=== PATIENT | male | born 1995 | race Caucasian/White ===

== ENCOUNTER 2017-02-02 19:24 | Inpatient (IN) | payer OTHER ==
[~2017-02-02] VITALS: Ht 185.4 cm; Wt 77.1 kg
--- NOTE | 2017-02-03 00:40 | NUR ---
Pre-admission assessment Patient is a 21-year old, male, seen at intake, AAOx4, no SOB and with slight anxiety noted at this time. Discussed with patient admission policies of the unit. Patient is coherent and able to respond to questions appropriately. Patient reported that he came from [place], [place]. Pt is ambulatory with steady gait. Pt reports using these substances daily for the last 6 months since he was discharged from [facility] in 07/2016: 1) Xanax 5 mg PO daily 2) Heroin 2 gms IV daily 3) Methamphetamine Salts 2 gms IV daily 4) Crack Cocaine 1 gm smoke daily 5) ETOH-Captain Nader 750-1500 ml daily 6) Cannabis 1/2 ounce smoke daily Vital signs taken and as follows: PC=351/84, P=116, O2 sat on RA=97%, RR=20, T=98.3. Patient reports PMHx as follows: ADHD, Hypertension, Insomnia, Anxiety and Depression. Pt verbalized instructions and teachings regarding disposal of narcotic and other controlled home meds, unit protocols such as taking of vital signs Q4H and handling and disposal of contraband. Addendum: 02/03/17 at 0139 by MIHIR MALLORY RN Additional information: Patient also reports history of withdrawal-induced seizures, the last was in 06/2016. Pt is allergic to PCN.
[2017-02-03] MEDS ORDERED: LORAZEPAM 1 MG TABLET PO PRN (01:00)
[2017-02-03] MEDS ORDERED: LOPERAMIDE HCL 2 MG CAPSULE PO PRN ×2 (01:00)
[2017-02-03] MEDS ORDERED: MIRALAX 17 GM POWD.PACK PO PRN (01:00)
[2017-02-03] MEDS ORDERED: LORAZEPAM 2 MG/1 ML VIAL IM PRN (01:00)
[2017-02-03] MEDS ORDERED: diphenhydrAMINE 50 MG CAPSULE PO PRN (01:00)
[2017-02-03] MEDS ORDERED: MAGNESIUM HYDROXIDE 30 ML LIQUID UDC PO PRN (01:00)
[2017-02-03] MEDS ORDERED: MAG HYDROX/AL HYDROX/SIMETH 30 ML LIQUID UDC PO PRN (01:00)
[2017-02-03] MEDS ORDERED: THIAMINE HCL 200 MG/2 ML VIAL IM ONE (01:00)
[2017-02-03] MEDS ORDERED: ONDANSETRON 4 MG/2 ML VIAL IM PRN (01:00)
[2017-02-03] MEDS ORDERED: ACETAMINOPHEN 325 MG TABLET PO PRN (01:00)
[2017-02-03] MEDS ORDERED: DICYCLOMINE HCL 20 MG TABLET PO PRN (01:00)
--- NOTE | 2017-02-03 01:25 | NUR ---
ADMISSION NOTE PATIENT IS A 21 YEAR OLD MALE WHO PRESENTS TO [facility] FOR SUPERVISED WITHDRAWAL FROM ETOH/BENZO/OPIATE/METH /MARIJUANA DEPENDENCE. HEIGHT IS 61 AND WEIGHT IS 170 LBS. SKIN CHECK DONE, NO SKIN BREAKDOWN. SKIN INTACT. LUNGS CLEAR AND ABDOMEN NON-DISTENDED. BOWEL SOUNDS ACTIVE ON ALL 4 QUADRANT. LAST BOWEL MOVEMENT WAS 5 DAYS AGO. DENIES ANY ABDOMINAL PAIN OR CONSTIPATION. NO DIFFICULTY URINATING. RESPIRATION EVEN AND UNLABORED. PATIENT REQUESTED TO BE FULL CODE AND HES VEGETARIAN. PATIENT ALLERGIC TO PENICILLIN. PATIENT REPORTS PMH OF ANXIETY, DEPRESSION, INSOMNIA, ADHD AND HISTORY OF WITHDRAWAL INDUCED SEIZURES, LAST ONE WAS 06/2016. PATIENT STATES HE RELAPSED 6 MONTHS AGO AFTER [facility] WHICH HE SPENT 28 DAYS THERE. SUBSTANCE HISTORY 1ETOH (CAPTAIN MANN)-[id number] ML DAILY FOR 6 MONTHS. LAST DRINK WAS 5TH PRIOR TO ADMISSION 2.XANAX TAKES 5 MG DAILY FOR 6 MONTHS. LAST USE WAS 1 MG PRIOR TO ADMISSION 3.HEROIN IV-INJECTS 2 GRAMS DAILY FOR 6 MONTHS. LAST USE WAS 2 GRAMS ON 02/02/17 4.METHAMPHETAMINE SALTS IV-INJECTS 2 GRAMS DAILY FOR 6 MONTHS . LAST USE WAS 1 GRAM ON 02/02/17 5.CRACK COCAINE-SMOKES 1 GRAM DAILY FOR 6 MONTHS. LAST USE WAS 5 ROCKS ON 02/02/17 6.CANNABIS- SMOKES OUNCE DAILY FOR 6 MONTHS. LAST USE WAS 5 GRAMS PRIOR TO ADMISSION. PATIENT SMOKES 1 PACK DAILY. HIS LONGEST PERIOD OF SOBRIETY WAS 6 MONTHS 3 YEARS AGO. HIS WITHDRAWAL SYMPTOMS WHEN HE DOESN'T USE ARE SWEATS, CRAVES, TREMORS HOT AND COLD AND DELUSIONAL. PATIENT DENIES SI/HI. PATIENT APPEARS TO BE ANXIOUS DURING INTERVIEW. COWS 8 AND CIWA 7. PATIENTS PCP IS DR. HAWTHORNE IN [place]. PATIENT BROUGHT HOME MEDS-RECONCILED. PATIENT ORIENTED TO SURROUNDINGS AND HOW TO USE CALL LIGHT. PATIENT WAS PLACED ON FALL/SEIZURE PRECAUTION. SAFETY MEASURES IN PLACE. CALL LIGHT IN REACH. WILL CONTINUE TO MONITOR.
[2017-02-03 01:35] LABS: *AMPHETAMINE, URINE POSITIVE (NEGATIVE); *BARBITURATE, URINE NEGATIVE (NEGATIVE); *CANNABINOID, URINE POSITIVE (NEGATIVE); *COCCAINE, URINE NEGATIVE (NEGATIVE); *OPIATE, URINE POSITIVE (NEGATIVE); *PHENCYCLIDINE SCREEN,URINE NEGATIVE (NEGATIVE)
[2017-02-03] MEDS ORDERED: BUPRENORPHINE HCL 2 MG TAB.SUBL SL ONE (01:37)
[2017-02-03] MEDS ORDERED: CLONIDINE HCL 0.1 MG TABLET ONE (01:38)
[2017-02-03] MEDS ORDERED: LORAZEPAM 1 MG TABLET ONE (01:38)
[2017-02-03 01:39] VITALS: BP 133/84
[2017-02-03] MEDS: CLONIDINE HCL 0.1 MG TABLET PO PRN ×2 (02:08→11:59)
[2017-02-03] MEDS: LORAZEPAM 1 MG TABLET PO PRN ×2 (02:08→09:19)
--- NOTE | 2017-02-03 02:08 | NUR ---
THIAMINE INJECTION AND ATIVAN ADMINISTRATION THIAMINE INJECTION GIVEN ON RIGHT BUTTOCK AND ATIVAN GIVEN FOR ANXIETY, RESTLESSNESS. CIWA 7. WILL MONITOR FOR EFFECTIVENESS
[2017-02-03] MEDS ORDERED: NICO-724 BC (02:27)
[2017-02-03] MEDS ORDERED: HYDR-3895 PO (02:27)
[2017-02-03] MEDS ORDERED: THIA100T13 GT (02:27)
[2017-02-03] MEDS ORDERED: NALT50TA PO (02:27)
[2017-02-03] MEDS ORDERED: MIRT30TA PO (02:27)
[2017-02-03] MEDS ORDERED: QUET100T PO (02:27)
[2017-02-03] MEDS ORDERED: FOLI1TAB16 PO (02:27)
--- NOTE | 2017-02-03 03:08 | NUR ---
PRN ATIVAN RE-ASSESSMENT PATIENT STATES HE FEELS MUCH BETTER. CIWA 3 AT THIS TIME.WILL CONTINUE TO MONITOR
[2017-02-03 03:11] LABS: BILIRUBIN,TOTAL 0.4 mg/dL (0.2-1.0); MAGNESIUM 2.2 mg/dL (1.8-2.4); POTASSIUM 3.4 mmol/L (3.5-5.1); TOTAL PROTEIN, SERUM 7.8 g/dL (6.4-8.2)
[2017-02-03 03:20] LABS: THYROID STIMULATING HORMONE 0.247 mIU/mL (0.358-3.740)
[2017-02-03 04:00] VITALS: BP 112/73
[2017-02-03 04:23] LABS: EOSINOPHILS # (AUTO) 0.4 K/uL (0.0-0.7); MONOCYTES # (AUTO) 0.7 K/UL (0.1-1.30)
[2017-02-03 04:32] LABS: BASOPHILS % (AUTO) 0.4 % (0.0-2.0); HEMATOCRIT 46.5 % (40-50); HEMOGLOBIN 16.4 G/DL (14.0-18.0); LYMPHOCYTES # (AUTO) 2.9 K/UL (0.8-4.8); LYMPHOCYTES % (AUTO) 35.9 % (20.5-51.5); MEAN CORPUSCULAR HEMOGLOBIN 31.5 UUG (27.0-31.0); MEAN CORPUSCULAR HGB CONC 35 g/dL (32.0-37.0); MEAN CORPUSCULAR VOLUME 89.6 FL (82.0-92.0); MONOCYTES % (AUTO) 8.4 % (0.0-11.0); NEUTROPHILS % (AUTO) 50.3 % (38.5-71.5); PLATELET COUNT (AUTO) 224 K/UL (150-450); RED BLOOD CELL COUNT(AUTO) 5.19 MIL/UL (4.7-6.1)
--- NOTE | 2017-02-03 07:28 | NUR ---
Start of Shift Notes: Received patient in his room. Alert and oriented x 4. Verbally responsive. Able to make needs known. Respirations even and unlabored. No SOB noted. Skin warm and dry to touch. Abdomen soft and non-distended with (+) BS in all 4 quadrants. No complains of N/V/D or constipation noted. No complains of abdominal discomfort noted. Voids independently. Denies dysuria. Ambulatory ad ruth with steady gait. Patient is a 21 year old male admitted for opiae/BZO and ETOH dependence who is on PRNs at this time. Prior to admission, patient was using. 750cc to 1.5L of Captain sloane daily x 6 months, 5 mg of Xanax, 2 grams of Heroin, 2 grams of methamphetamine, 1 gram of crack cocaine and 1/2 ounce of marijuana. FULL CODE. Allergic to PCN. Vegetarian Diet. Has past medical hx of ADHD, HTN, insomnia, anxiety, depression and seizures related to withdrawal. Educated patient on his current plan of care for the day and his medication regimen. Encouraged oral fluid intake and encouraged group participation to learn new skills to prevent relapse. Will continue to monitor closely.
--- NOTE | 2017-02-03 07:33 | NUR ---
END OF SHIFT NOTE PATIENT NEWLY ADMITTED FOR ETOH, OPIATE, BENZO, METH AND CANNABIS. PATIENT SLEPT 4 HOURS. FLUID INTAKE 500 ML. VOIDED X 1. NO BM. LAST COWS 4 AND CIWA 3. PATIENT REMAIN STABLE. WILL CONTINUE TO MONITOR.
[2017-02-03 08:00] VITALS: BP 118/78
[2017-02-03] MEDS ORDERED: TUBERCULIN,PURIF.PROT.DERIV. 5 TU/0.1 ML TEST ID ONE (09:00)
[2017-02-03] MEDS ORDERED: POTASSIUM CHLORIDE 20 MEQ TAB.PRT.SR PO ONE (09:00)
[2017-02-03] MEDS: THIAMINE HCL 100 MG TABLET PO SCH (09:19)
[2017-02-03] MEDS: MULTIVITAMINS,THERAPEUTIC TABLET PO SCH (09:19)
[2017-02-03] MEDS: BUPRENORPHINE HCL 2 MG TAB.SUBL SL PRN ×2 (09:19→14:18)
[2017-02-03] MEDS: FOLIC ACID 1 MG TABLET PO SCH (09:19)
--- NOTE | 2017-02-03 09:19 | NUR ---
Subutex 4 mg SL/Ativan 1 mg PO given: Patient noted with COWS 12/CIWA 7. Patient presented with chills, goosebumps, anxiety, agitation, hot flashes, restless legs and sweats. Medicated patient with Subutex 4 mg SL and Ativan 1 mg PO as ordered. Will monitor for effectiveness.
--- NOTE | 2017-02-03 09:49 | NUR ---
Re-assessment: Subutex: COWS 7. No nausea. No restlessness noted. Less sweating and flushing.
--- NOTE | 2017-02-03 10:19 | NUR ---
Re-assessment: CIWA 5. Less anxiety, less sweating and less agitation noted. PRN Ativan was effective in reducing his withdrawal symptoms.
[2017-02-03] MEDS: ONDANSETRON ODT 4 MG TAB.RAPDIS SL PRN (11:20)
--- NOTE | 2017-02-03 11:20 | NUR ---
Zofran 4 mg ODT given: Patient noted with complain of nausea. Unable to tolerate breakfast due to nausea. Medicated patient with Zofran 4 mg ODT as ordered. Will monitor for effectiveness.
--- NOTE | 2017-02-03 11:53 | NUR ---
Taper orders: Patient placed on 5-day Subutex and 5-day Ativan taper as ordered per MD. Taper will be started at 1300.
[2017-02-03] MEDS: METHOCARBAMOL 750 MG TABLET PO PRN (11:59)
--- NOTE | 2017-02-03 11:59 | NUR ---
Robaxin 750 mg PO and Clonidine 0.1mg PO given: Patient noted with complain of myalgia 5/10 and chills, hot flashes and anxiety. Medicated patient with Clonidine 0.1mg PO and Robaxin 750 mg PO as ordered. Will monitor for effectiveness.
[2017-02-03 12:00] VITALS: BP 108/69
[2017-02-03] MEDS: LORAZEPAM 1 MG TABLET PO SCH ×3 (12:00→21:26)
[2017-02-03] MEDS: BUPRENORPHINE HCL 2 MG TAB.SUBL SL SCH ×3 (12:00→21:26)
--- NOTE | 2017-02-03 12:00 | NUR ---
Taper initiated: Patient placed on 5-day Subutex and 5-day Ativan and orders were initiated at this time. COWS 15/CIWA 9.
--- NOTE | 2017-02-03 12:20 | NUR ---
Re-assessment: Zofran Per patient, PRN Zofran was mildly effective in reducing nausea. No emesis reported.
--- NOTE | 2017-02-03 12:59 | NUR ---
Re-assessment: Per patient, Robaxin was mildly effective in reducing body aches and pains. PL 4/10. PRN Clonidine was effective in reducing anxiety, chills, sweats and hot flashes.
--- NOTE | 2017-02-03 14:11 | NUR ---
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 PRN Robaxin and Clonidine was given at 1159 and Zofran 4 mg was given at 1120. Per MD, administer x 1 dose of Subutex 4 mg SL and x 1 order of Baclofen 20 mg PO now. MD is unable to enter in orders at this time. MD is off the building. Orders noted and carried out. Patient education provided.
[2017-02-03] MEDS ORDERED: BACLOFEN 20 MG TABLET PO ONE (14:15)
--- NOTE | 2017-02-03 14:19 | NUR ---
Subutex 4 mg SL/Baclofen 20 mg PO x 1 given as ordered: Patient was medicated with Subutex 4 mg SL from PRN dose in addition to the taper, as well as Baclofen 20 mg PO x 1 dose for complains of myalgia. COWS 15. Patient appears anxious and irritable.
--- NOTE | 2017-02-03 14:49 | NUR ---
Re-assessment: Subutex: COWS 8. PRN Subutex was effective in reducing patient's withdrawal symptoms. Less chills, hot flashes, and tremors noted.
--- NOTE | 2017-02-03 15:19 | NUR ---
Re-assessment: Baclofen 20 mg Per patient, PRN Baclofen has been mildly effective in reducing myalgia. PL 07/30.
[2017-02-03 16:00] VITALS: BP 130/87
--- NOTE | 2017-02-03 16:26 | NUR ---
Zofran 4 mg/2ml IM given: Patient noted with x 4 episodes of emesis and nausea. Patient is unable to tolerate his breakfast and dinner meals. Zofran 4 mg ODT at 1120 was given with little help. Medicated patient with Zofran 4 mg/2ml IM was given as ordered to right buttock. No bleeding noted.
--- NOTE | 2017-02-03 16:56 | NUR ---
Re-assessment: PRN Zofran was ineffective in eliminating patient's nausea. Patient noted with x 3 episodes of vomiting after administration of Zofran 4 mg IM.
--- NOTE | 2017-02-03 17:10 | NUR ---
MD Communication: Paged Dr. Jules at this time to notify of patient's current condition. Awaiting for MD to RTC.
--- NOTE | 2017-02-03 17:20 | NUR ---
Communication: New orders: Dr. Jules returned call and notified of patient's current condition. will enter in orders at this time. Addendum: 02/03/17 at 1908 by TJ BANDA LVN Per MD Jules, patient is to have patio restrictions x 24 hours starting at 1730.
[2017-02-03] MEDS ORDERED: PROMETHAZINE HCL 25 MG/1 ML VIAL IM PRN (17:30)
--- NOTE | 2017-02-03 17:45 | NUR ---
IV line inserted: Inserted 22 gauge to patient's left forearm via aseptic technique. Attempted x 1 with good blood return. Tourniquet released. Patient tolerated well. Patient education was provided. Patient verbalized good understanding. Addendum: 02/04/17 at 1121 by TJ BANDA LVN Clarification to note: Inserted 22 gauge to patient's right forearm.
[2017-02-03] MEDS ORDERED: QUETIAPINE FUMARATE 100 MG TABLET PO SCH (18:00)
[2017-02-03] MEDS: IV D5 1/2 NS 1000 ML 1,000 ML IV PRN (18:06)
--- NOTE | 2017-02-03 18:06 | NUR ---
IVF initiated: Patient started on D5 1/2 NS at 120cc/hr at this time. Flushed adequately per unit protocol. Patient is currently tolerating IV fluids well. No s/s of infiltration noted.
--- NOTE | 2017-02-03 18:10 | NUR ---
Phenergan 25 mg IM given: Phenergan 25 mg IM given at this time due to nausea and episodes of emesis x 4 after administration of IM Zofran. Will monitor for effectiveness.
--- NOTE | 2017-02-03 18:40 | NUR ---
Re-assessment: Phenergan Per patient, no further episodes of emesis noted. Still noted with nausea and continues to demand for Subutex. Informed patient that he will be getting another dose of Subutex at 1999, however patient continues to demand to be seen by MD. MD Jules made aware.
--- NOTE | 2017-02-03 18:56 | NUR ---
End of Shift Notes: Patients taper of Subutex and Ativan initiated today. No adverse reactions noted. Patient tolerated taper well. VS monitored closely q 4 hours. No significant abnormalities noted. Withdrawal symptoms were closely monitored. Patient presented with initial COWS 12/CIWA 7, patient presented with muscle aches and pains, anxiety, agitation, goosebumps, chills, hot flashes and sweats. Medicated patient with Subutex and Ativan at 0919 with mild help, Zofran 4 mg at 1120 for nausea with help and Robaxin and Clonidine at 1159 for myalgia and chills/anxiety with help after 1 hour. At 1418 patient had x 1 episode of emesis with complains of body aches. PRN Subutex 4 mg SL & Baclofen were given as ordered with help after 1 hour. At 1626, patient had another episode of vomiting, medicated patient with Zofran 4 ms IM at 1626 which was ineffective. Notified MD Jules of patients current medical condition. Patient continues to demand for Subutex despite education provided regarding his medication regimen. Zofran Inserted IV line to patients left forearm for hydration of D5 1/2NS at 120cc/hr. Phenergan 25 mg IM given at 1810 for nausea and vomiting with help after 30 minutes. Last COWS 8/CIWA 6. Appetite poor. Patient was unable to participate in group and activities due to his withdrawal symptoms. All needs met and attended. Will continue to monitor closely. Addendum: 02/04/17 at 1122 by TJ BANDA LVN Patient's IV line is on patient's right forearm
[2017-02-03 20:00] VITALS: BP 114/78
--- NOTE | 2017-02-03 20:00 | NUR ---
START OF SHIFT NOTE RECEIVED REPORT FROM DAY SHIFT NURSE. PATIENT IS A 21 YEAR OLD MALE, ADMITTED FOR ETOH/BENZO/OPIATE/COCAINE/METH/MARIJUANA DEPENDENCE. PATIENT IS ON 5 DAY ATIVAN AND 5 DAY SUBUTEX TAPER, STARTED TODAY. PATIENT IS ON IV D5% AND 1/2 NS SOLN AT 120 MLS/HR ON RIGHT FOREARM 22 G. PATIENT WAS GIVEN PRN SUBUTEX, ATIVAN , PHENERGAN, ZOFRAN, ROBAXIN , CLONIDINE AND BACLOFEN DUE FOR HIS WITHDRAWAL SYMPTOMS. LAST COWS 8 AND CIWA 6. ON FALL/SEIZURE PRECAUTION. SAFETY MEASURES IN PLACE. CALL LIGHT IN REACH. WILL CONTINUE TO MONITOR.
[2017-02-03] MEDS: MIRTAZAPINE 15 MG TABLET PO SCH (21:26)
[2017-02-03] MEDS: QUETIAPINE FUMARATE 100 MG TABLET PO SCH (21:26)
[2017-02-03] MEDS: GABAPENTIN 300 MG CAPSULE PO SCH (21:37)
[2017-02-04] VITALS: BP 120/83
[2017-02-04] MEDS: IV D5 1/2 NS 1000 ML 1,000 ML IV PRN ×2 (02:45→12:12)
[2017-02-04 04:00] VITALS: BP 112/81
--- NOTE | 2017-02-04 07:30 | NUR ---
END OF SHIFT NOTE PATIENT IS A 21 YEAR OLD MALE, ADMITTED FOR ETOH/BENZO/OPIATE/COCAINE/METH/MARIJUANA DEPENDENCE. PATIENT IS ON 5 DAY ATIVAN AND 5 DAY SUBUTEX TAPER, STARTED TODAY. CONTINUE ON IV D5% AND 1/2 NS SOLN AT 120 MLS/HR ON RIGHT FOREARM 22 G, PATENT AND NO INFILTRATE. PATIENT ENCOURAGE FLUIDS . PATIENT IN ROOM MOST OF THE TIME. PATIENT DID NOT REQUIRE ANY PRN MEDICATION DURING SHIFT. ON FALL/SEIZURE PRECAUTION. SAFETY MEASURES IN PLACE. CALL LIGHT IN REACH. WILL CONTINUE TO MONITOR. SLEPT 10 HOURS. FLUID INTAKE 2,446 ML. VOIDED X 3. BM NO . LAST COWS 3 AND CIWA 2.NO VOMITING DURING SHIFT
--- NOTE | 2017-02-04 07:45 | NUR ---
START OF SHIFT Rcvd endorsement from ongoing nurse, client is in room, a/o x4, he presents with depressed mood, flat affect, moist skin, fine tremors. He reports restless legs, sweat, cold/chills and no appetite. He denies any N/V/D. He denies any SI/HI. Track yanez (healed) noted @ bilateral forearm. Peripheral IV 22G on R forearm, intact/patent D51/2NS @ 120 mL/hr running and tolerated well. Encouraged client to increase fluid intake to facilitate detox. Encourage client to attend group therapy for skills to maintain sobriety. Client is a 21 yo male admitted for withdrawal from alcohol and heroin. He is on 5 day Ativan/Subutex taper (day 2), tolerating well. Last CIWA 2/COWS 3@ 0400. He reports allergies to PCN, full code, regular diet. He had an uneventful night, he slept 10 hrs. Client reports a history of withdrawal-induced seizure (last on 06/2016). He is on seizure precautions. Call light within reach. Side rails up x2/padded, bed locked and in low position
[2017-02-04 08:07] LABS: HEPATITIS B SURFACE AG Negative (Negative)
[2017-02-04 08:26] VITALS: BP 119/82
[2017-02-04] MEDS: LORAZEPAM 1 MG TABLET PO SCH ×3 (09:23→20:50)
[2017-02-04] MEDS: FOLIC ACID 1 MG TABLET PO SCH (09:23)
[2017-02-04] MEDS: GABAPENTIN 300 MG CAPSULE PO SCH ×3 (09:23→20:50)
[2017-02-04] MEDS: THIAMINE HCL 100 MG TABLET PO SCH (09:23)
[2017-02-04] MEDS: BUPRENORPHINE HCL 2 MG TAB.SUBL SL SCH ×3 (09:23→20:53)
[2017-02-04] MEDS: MULTIVITAMINS,THERAPEUTIC TABLET PO SCH (09:23)
[2017-02-04] MEDS: FAMOTIDINE 20 MG TABLET PO SCH (09:23)
[2017-02-04] MEDS ORDERED: KETOROLAC TROMETHAMINE 30 MG INJ IM PRN (11:30)
[2017-02-04 12:27] VITALS: BP 127/75
[2017-02-04] MEDS: DICYCLOMINE HCL 20 MG TABLET PO SCH ×2 (14:30→20:52)
[2017-02-04] MEDS: BACLOFEN 10 MG TABLET PO SCH ×2 (14:31→20:50)
--- NOTE | 2017-02-04 14:44 | NUR ---
One time dose of Clonidine 0.1mg for irritability, colds. Will continue to monitor. call lght within reach.
--- NOTE | 2017-02-04 14:50 | NUR ---
Client pull-out peripheral IV line and leave cannula at bedside. he stated "I am better now, I have not threw up today at all. I don't want that IV on me anymore." Quinn and notified. NNO at this time.
[2017-02-04] MEDS ORDERED: CLONIDINE HCL 0.1 MG TABLET PO ONE (15:00)
--- NOTE | 2017-02-04 15:44 | NUR ---
Reassessment One time dose of Clonidine 0.1mg for irritability, colds, client is in bed, eyes closed, RR 16 even, non-labored.
[2017-02-04 16:55] VITALS: BP 109/64
--- NOTE | 2017-02-04 18:49 | NUR ---
END OF SHIFT Client is a 21 yo male admitted for withdrawal from alcohol and heroin. Client continues on Ativan/Subutex taper. No adverse reactions noted. He reports restless legs, stomach cramps and chills, he denies any SI/HI. One time dose of Clonidine 0.1mg for irritability, colds, noted effective. Client was not compliant with group therapy d/t withdrawal symptoms. Adequate PO and IV intake void x 1. Safety measures in place, call light within reach, side rails up x2/padded, bed locked and in low position. Endorsed to incoming nurse
--- NOTE | 2017-02-04 19:47 | NUR ---
START OF SHIFT Pt is a 21 yr old male, A&Ox3. Pt was admitted on 02/03/18 for ETOH/Opiate/Benzo Dependence and is on 5 day Ativan and 5 Day Subutex taper as ordered. Pt received Clonidine during the day for anxiety. Medication was effective. Last COWS score was 8 and CIWA score was Pt is currently in bed resting with respirations even and unlabored. Skin is intact, warm and dry to touch. No acute distress noted at this time. Safety precautions are observed. Call light is within reach. Will continue to monitor. Addendum: 02/04/17 at 1956 by CHANA NEWBY LVN Last CIWA score was 7 at 1600.
[2017-02-04 20:00] VITALS: BP 117/64
[2017-02-04] MEDS: QUETIAPINE FUMARATE 100 MG TABLET PO SCH (20:50)
[2017-02-04] MEDS: MIRTAZAPINE 15 MG TABLET PO SCH (20:52)
[2017-02-04] MEDS: CLONIDINE HCL 0.1 MG TABLET PO SCH (20:52)
[2017-02-04] MEDS: ONDANSETRON ODT 4 MG TAB.RAPDIS SL PRN (21:28)
--- NOTE | 2017-02-04 21:28 | NUR ---
ZOFRAN PRN GIVEN Pt was c/o nausea. No episode of emesis noted. Zofran 4mg SL PRN was given as ordered. Medication mahi well. Encouraged increase fluid intake. Will continue to monitor.
--- NOTE | 2017-02-04 22:29 | NUR ---
PRN RE-ASSESSMENT Zofran PRN was effective. Pt is currently in bed resting with respirations even and unlabored. No acute distress noted. Will continue to monitor.
[2017-02-05] VITALS: BP 126/68
[2017-02-05 04:00] VITALS: BP 113/69
--- NOTE | 2017-02-05 06:50 | NUR ---
END OF SHIFT Pt is a 21 yr old male, A&Ox3. Pt was admitted on 02/03/18 for ETOH/Opiate/Benzo Dependence and is on 5 day Ativan and 5 Day Subutex taper as ordered. Pt was c/o nausea during the night and received Zofran 4mg SL PRN at 8. Medication was effective. Last COWS score was 1 and CIWA score was 0 at 0400. Pt stated of having w/d symptoms prior to 2100 medications. Pt was able to sleep comfortable throughout the night after receiving medication as scheduled. Pt slept for 11 hours. Skin is intact, warm and dry to touch. No acute distress noted at this time. Safety precautions are observed. Call light is within reach.
--- NOTE | 2017-02-05 07:30 | NUR ---
START OF SHIFT Rcvd endorsement from ongoing nurse, client is in room, a/o x4, he presents with depressed mood, flat affect, moist skin, flushed face. He denies any N/V/D. He denies any SI/HI. Encouraged client to increase fluid intake to facilitate detox. Encourage client to attend group therapy for skills to maintain sobriety. Client is a 21 yo male admitted for withdrawal from alcohol and heroin. He is on 5 day Ativan/Subutex taper (day 3), tolerating well. Last CIWA 0/COWS 1 @ 0400. He reports allergies to PCN, full code, regular diet. PRN Zofran 4mg SL, he slept 11 hrs. Client reports a history of withdrawal-induced seizure (last on 06/2016). He is on seizure precautions. Call light within reach. Side rails up x2/padded, bed locked and in low position
[2017-02-05 08:55] VITALS: BP 122/75
[2017-02-05] MEDS ORDERED: BUPRENORPHINE HCL 2 MG TAB.SUBL SL SCH ×2 (09:00→15:00)
--- NOTE | 2017-02-05 09:00 | NUR ---
Zero induration noted at TB site on R forearm
[2017-02-05] MEDS: FOLIC ACID 1 MG TABLET PO SCH (09:57)
[2017-02-05] MEDS: LORAZEPAM 1 MG TABLET PO SCH ×4 (09:57→21:18)
[2017-02-05] MEDS: FAMOTIDINE 20 MG TABLET PO SCH (09:58)
[2017-02-05] MEDS: GABAPENTIN 300 MG CAPSULE PO SCH (09:58)
[2017-02-05] MEDS: DICYCLOMINE HCL 20 MG TABLET PO SCH ×3 (09:58→21:18)
[2017-02-05] MEDS: MULTIVITAMINS,THERAPEUTIC TABLET PO SCH (09:58)
[2017-02-05] MEDS: CLONIDINE HCL 0.1 MG TABLET PO SCH ×3 (09:58→21:00)
[2017-02-05] MEDS: THIAMINE HCL 100 MG TABLET PO SCH (09:58)
[2017-02-05] MEDS: BACLOFEN 10 MG TABLET PO SCH (09:58)
[2017-02-05 12:55] VITALS: BP 129/78
[2017-02-05] MEDS: IBUPROFEN 400 MG TABLET PO PRN (13:40)
[2017-02-05] MEDS: BUPRENORPHINE HCL 2 MG TAB.SUBL SL SCH ×3 (13:40→21:18)
[2017-02-05] MEDS: METHOCARBAMOL 750 MG TABLET PO PRN (13:40)
[2017-02-05] MEDS: GABAPENTIN 400 MG CAPSULE PO SCH ×2 (14:19→21:18)
[2017-02-05] MEDS: BACLOFEN 20 MG TABLET PO SCH ×2 (14:19→21:18)
[2017-02-05 16:00] VITALS: BP 120/71
--- NOTE | 2017-02-05 17:48 | NUR ---
Held Ativan 1mg, Subutex 2mg client is too sedated, arousable to pain stimuli, but unable to answer questions or open his eyes, RR 16 even, non-labored. Not able to assess for COWS/CIWA. notified, C.N made aware.
--- NOTE | 2017-02-05 18:45 | NUR ---
END OF SHIFT Client is a 21 yo male admitted for withdrawal from alcohol and heroin. Client continues on Ativan/Subutex taper. No adverse reactions noted. Client is in bed, he sounds asleep, RR 16, even, nonlabored. 1700 Taper medications held d/t client being too sedated, notified. Client was not compliant with group therapy d/t withdrawal symptoms. Adequate PO intake 1400mL, void x 2. Safety measures in place, call light within reach, side rails up x2/padded, bed locked and in low position. Endorsed to incoming nurse
--- NOTE | 2017-02-05 19:30 | NUR ---
START OF SHIFT Pt is a 21 yr old male, A&Ox3. Pt was admitted on 02/03/18 for ETOH/Opiate/Benzo Dependence and is on 5 day Ativan and 5 Day Subutex taper as ordered. Subutex and Ativan as scheduled was held at 1700 due to increase sedation. Pt continues to be observed with increase sedation. Pt remains in bed sleeping with respirations even and unlabored. Pt is arousable to light pain. Skin is intact, warm and dry to touch. No acute distress noted at this time. Safety precautions are observed. Call light is within reach. Will continue to monitor.
[2017-02-05 20:00] VITALS: BP 118/69
[2017-02-05] MEDS: QUETIAPINE FUMARATE 100 MG TABLET PO SCH (21:18)
[2017-02-05] MEDS: MIRTAZAPINE 15 MG TABLET PO SCH (21:18)
--- NOTE | 2017-02-05 21:22 | NUR ---
CLONIDINE HELD Clonidine 0.1mg PO was held due to HR is <70. VS are 118/69 and HR 68. Pt is observed with increase sedations. No acute distress noted. Safety precautions observed. Will continue to monitor.
[2017-02-06] VITALS (8 sets, daily range): BP systolic 113–153; BP diastolic 61–94
[2017-02-06] MEDS ORDERED: CLONIDINE HCL 0.1 MG TABLET PO ONE (00:15)
--- NOTE | 2017-02-06 00:36 | NUR ---
NSG NOTES Pt is noted with increase BP of 153/94 and HR of 125. Pt is asymptomatic and is in bed resting with respirations even and unlabored. Dr. Jules was made aware with new order for clonidine 0.1mg PO x1. new order was noted and carried out. Medication was given and mahi well. Encouraged increase fluid intake. Will continue to monitor.
--- NOTE | 2017-02-06 01:58 | NUR ---
CLONIDINE RE-ASSESSMENT Clonidine was mildly effective. BP was 152/78 and HR 118. Pt remains in bed, asleep with respirations even and unlabored. No acute distress noted. Safety precautions observed. Will continue to monitor closely.
--- NOTE | 2017-02-06 04:00 | NUR ---
CIWA AND COWS DEFERRED Pt is asleep at this time with respirations even and unlabored. No acute distress noted. VS are in stable condition. Safety precautions observed. Will continue to monitor.
--- NOTE | 2017-02-06 06:44 | NUR ---
END OF SHIFT Pt is a 21 yr old male, A&Ox3. Pt was admitted on 02/03/18 for ETOH/Opiate/Benzo Dependence and is on 5 day Ativan and 5 Day Subutex taper as ordered. Pt has been in bed, asleep throughout the night. Clonidine 0.1mg PO was held at 2100 due to HR <70. At 0000 VS check, Pt was noted with HR at 125 and BP 153/94. Pt was asymptomatic. Dr. Jules was made aware and received a x1 order for Clonidine 0.1mg PO. Medication was effective. Pt VS were stable at 0400 with a HR of 86 and BP 133/73. Pt slept for 10 hrs and remains asleep at this time. Skin is intact, warm and dry to touch. No acute distress noted. Last COWS score was 6 CIWA score was 3 at 0000. Safety precautions are observed. Call light is within reach.
--- NOTE | 2017-02-06 07:30 | NUR ---
START OF SHIFT Rcvd endorsement from ongoing nurse, client is in bed, arouses to touch, a/o to name and place. Client noted with flashed face, clammy skin, T 98.2 P 103 BP 145/78 RR 17 SPO2 @ 88% on RA, pain 9/10 generalized body aches. RN raised HOB to high fowlers, encourage and demonstrate deep breathing, spO2 @ 97 on O2 2LPM via NC, MD Jules gave verbal order and to include a chest X-ray to r/o PNA. Client had an episode of increased BP 152/78 and HR 118 overnight a one time dose Clonidine 0.1mg administered. Client is a 21 yo male admitted for withdrawal from alcohol and heroin. He is on 5 day Ativan/Subutex taper (day 3), tolerating well. Last CIWA 3/COWS 3 @ 2400. He reports allergies to PCN, full code, vegetarian diet. Client reports a history of withdrawal-induced seizure (last on 06/2016). He is on seizure precautions. Call light within reach. Side rails up x2/padded, bed locked and in low position
[2017-02-06] MEDS: FAMOTIDINE 20 MG TABLET PO SCH (09:25)
[2017-02-06] MEDS: BUPRENORPHINE HCL 2 MG TAB.SUBL SL SCH ×3 (09:25→20:23)
[2017-02-06] MEDS: LORAZEPAM 1 MG TABLET PO SCH ×3 (09:25→20:22)
[2017-02-06] MEDS: MULTIVITAMINS,THERAPEUTIC TABLET PO SCH (09:25)
[2017-02-06] MEDS: GABAPENTIN 400 MG CAPSULE PO SCH ×3 (09:25→20:23)
[2017-02-06] MEDS: FOLIC ACID 1 MG TABLET PO SCH (09:25)
[2017-02-06] MEDS: CLONIDINE HCL 0.1 MG TABLET PO SCH ×3 (09:26→20:23)
[2017-02-06] MEDS: BACLOFEN 20 MG TABLET PO SCH ×3 (09:26→20:22)
[2017-02-06] MEDS: THIAMINE HCL 100 MG TABLET PO SCH (09:26)
[2017-02-06] MEDS: DICYCLOMINE HCL 20 MG TABLET PO SCH ×3 (09:26→20:23)
--- NOTE | 2017-02-06 11:25 | NUR ---
Titrate O2 to 1L via NC, spO2 @ 97% at this time, client sounds asleep, arousable to touch. RR 16 non-labored. MD made aware, will continue to monitor.
--- NOTE | 2017-02-06 11:57 | NUR ---
MD Notification XR CHEST IMPRESSION: Subtle increased linear densities in the right middle lobe. This may represent atelectasis or early infiltrate cannot be excluded. A lateral view may be considered for further evaluation, NNO at this time.
[2017-02-06] MEDS ORDERED: hydrALAZINE HCL 50 MG TABLET PO PRN (12:45)
[2017-02-06 13:49] LABS: BASOPHILS # (AUTO) 0.2 K/uL (0.0-8.0); BASOPHILS % (AUTO) 1.1 % (0.0-2.0); EOSINOPHILS # (AUTO) 0.2 K/uL (0.0-0.7); EOSINOPHILS % (AUTO) 1.4 % (0.0-7.0); HEMOGLOBIN 14.5 G/DL (14.0-18.0); LYMPHOCYTES # (AUTO) 2.5 K/UL (0.8-4.8); LYMPHOCYTES % (AUTO) 17.1 % (20.5-51.5); MEAN CORPUSCULAR HEMOGLOBIN 31.4 UUG (27.0-31.0); MEAN CORPUSCULAR HGB CONC 35 g/dL (32.0-37.0); MEAN CORPUSCULAR VOLUME 91.1 FL (82.0-92.0); MONOCYTES # (AUTO) 1.5 K/UL (0.1-1.30); MONOCYTES % (AUTO) 10.5 % (0.0-11.0); NEUTROPHILS # (AUTO) 10.2 K/UL (1.8-8.9); NEUTROPHILS % (AUTO) 69.9 % (38.5-71.5)
[2017-02-06 13:50] LABS: CREATININE 1.1 mg/dL (0.6-1.3); MAGNESIUM 1.8 mg/dL (1.8-2.4); PHOSPHOROUS 4.7 mg/dL (2.5-4.9); POTASSIUM 3.8 mmol/L (3.5-5.1)
[2017-02-06 13:52] LABS: PLATELET COUNT (AUTO) 166 K/UL (150-450); RED BLOOD CELL COUNT(AUTO) 4.64 MIL/UL (4.7-6.1); WHITE BLOOD COUNT (AUTO) 14.6 K/UL (4.0-11.2)
--- NOTE | 2017-02-06 14:04 | NUR ---
MD Notification Client is arousable to name and place. Client has not been eating or drinking since this morning. T 98.4 P 72 BP 127/61 SPO2 95% O2 1Lpm via NC, pain 0/10.
--- NOTE | 2017-02-06 14:15 | NUR ---
Per MD Jules to restart IV fluids, see eMAR. Client verbalized understanding.
--- NOTE | 2017-02-06 14:22 | NUR ---
Peripheral line 22G on R hand x 1 attempt, client tolerated well.
[2017-02-06] MEDS: IV D5 1/2 NS 1000 ML 1,000 ML IV PRN (14:40)
[2017-02-06] MEDS: LEVOFLOXACIN 750 MG TABLET PO SCH (15:15)
[2017-02-06] MEDS ORDERED: PRAZ2CAP2 PO (16:57)
[2017-02-06] MEDS ORDERED: SERT50TA PO (16:57)
[2017-02-06] MEDS ORDERED: GABA-534 PO (16:57)
[2017-02-06] MEDS ORDERED: DOXE100C4 PO (16:57)
--- NOTE | 2017-02-06 17:10 | NUR ---
Dr. Jules and Dr. Adhikari notified of ECG results: Normal Sinus Rhythm. NNO at this time.
--- NOTE | 2017-02-06 19:10 | NUR ---
Start of Shift Patient Received. Patient is in his bed sleeping but aroused to touch. Breathing even and non labored and is currently receiving Oxygen at 1 liter via Nasal Canula. No facial grimising noted. Patient is a 21 year old male admitted on 02/03/17 for ETOH, Benzo, and Opiate Dependence under the care of Dr. Jules. Patient is currently receiving a 5 day Ativan and 5 day Subutex taper. Patient verbalizes allergies to PCN, following a vegetarian diet, wishes to be full code, placed on fall and seizure precautions, and skin noted intact. Past medical history noted as ADHD, Hypertension, Insomnia, Anxiety, and Depression, history of seizure with last seizure noted in 06/2016. Per endorsement, patient noted with diminished lung sounds throughout and Rales to lower lobe. Patient was started on Levaquin 750mg Q24H for PNA. Patient also receiving IV Fluid Therapy D5-1/2NS 120ml/hr Q8H, peripheral line 22G on R hand intact/patent. All needs attended to promptly. Will continue plan of care as ordered.
--- NOTE | 2017-02-06 19:28 | NUR ---
END OF SHIFT Client is a 21 yo male admitted for withdrawal from alcohol and heroin. Client continues on Ativan/Subutex taper. No adverse reactions noted. Client is in bed, he sounds asleep, RR 16, even, nonlabored. He is on IV fluid therapy D51/2NS 120ml/hr Q8H, peripheral line 22G on R hand intact/patent. He is on 0.5 O2 LPM via NC with sats 98% Client is on antibiotic therapy Levaquin 750mg Q24H for PNA. Client was not compliant with group therapy d/t withdrawal symptoms. Adequate PO intake 1255mL, void x 2. Safety measures in place, call light within reach, side rails up x2/padded, bed locked and in low position. Endorsed to incoming nurse
[2017-02-06] MEDS: MIRTAZAPINE 15 MG TABLET PO SCH (20:23)
[2017-02-06] MEDS: QUETIAPINE FUMARATE 25 MG TABLET PO SCH (20:23)
[2017-02-06] MEDS ORDERED: QUETIAPINE FUMARATE 100 MG TABLET PO SCH (21:00)
--- NOTE | 2017-02-06 21:00 | NUR ---
IV Status Patients IV noted to be dislodged. Attempted to reinsert. Unable to reinsert. Called ER nurse for assistance.
--- NOTE | 2017-02-06 22:00 | NUR ---
IV status ER Nurse able to insert IV, 20 gauge noted to the right hand. IV fluids restarted. Patient is able to tolerate well. Will continue to monitor.
[2017-02-06] MEDS: IBUPROFEN 400 MG TABLET PO PRN (23:22)
--- NOTE | 2017-02-06 23:22 | NUR ---
PRN Medication Administration Patient is noted awake and verbalizing pain due to headache 5/10. Patient is also verbalizing increased anxiety. PRN Vistaril and Motrin administered as per orders. Will continue to monitor.
[2017-02-06] MEDS: HYDROXYZINE PAMOATE 25 MG CAPSULE PO PRN (23:24)
--- NOTE | 2017-02-07 00:20 | NUR ---
PRN Medication Reassessment Patient is noted in bed sleeping. Breathing even and non labored. No facial grimicing noted. Patient is able to sleep well with no complications noted. PRN Vistaril and Motrin noted to be effective. Will continue to monitor.
[2017-02-07 00:41] VITALS: BP 112/63
[2017-02-07] MEDS: IV D5 1/2 NS 1000 ML 1,000 ML IV PRN ×2 (01:52→18:42)
[2017-02-07 04:06] VITALS: BP 115/68
--- NOTE | 2017-02-07 07:07 | NUR ---
End of Shift Patient is in bed, awake, alert and verbally responsive. Breathing even and non labored. Patient is currently receiving Oxygen at 1 liter via Nasal Canula. Patient is a 21 year old male admitted on 02/03/17 for ETOH, Benzo, and Opiate Dependence under the care of Dr. Jules. Patient is continuing on a 5 day Ativan and 5 day Subutex taper. Patient verbalizes allergies to PCN, following a vegetarian diet, wishes to be full code, placed on fall and seizure precautions, and skin noted intact. Past medical history noted as ADHD, Hypertension, Insomnia, Anxiety, and Depression, history of seizure with last seizure noted in 06/2016. Patient continues on ATB therapy of Levaquin 750mg and also IV Fluid Therapy D5-1/2NS 120ml/hr Q8H, peripheral line 20G on R hand intact and patent. Patient was given PRN Motrin and Vistaril with medication noted to be effective. All needs attended to promptly. Will endorse to continue plan of care as ordered.
--- NOTE | 2017-02-07 07:45 | NUR ---
START OF SHIFT Received report from night nurse. 21 year old male patient admitted on 02/03/17 for ETOH, benzo, opiate, and methamphetamine dependence. Pt is on a 5 day Ativan and 5 day Subutex taper and is tolerating well. Reports medical hx of ADHD, HTN, insomnia, anxiety and depression, reports a seizure hx r/t withdrawals in Jun 2016. Pt remains seizure free and safe throughout hospitalization. Pt is receiving Levaquin PO for pneumonia. Pt has a #20g IV to right hand with IVF D5 1/2 NS. IV site is clear, no redness or infiltration noted. PRN Vistaril and Motrin administered at night. Pt is allergic to PCN and follows a vegetarian diet. Slept for 6/12 hours. Most recent COWS are 4 and CIWA 5. All needs met at this time,will continue to monitor.
[2017-02-07 08:15] VITALS: BP 111/68
[2017-02-07] MEDS: MULTIVITAMINS,THERAPEUTIC TABLET PO SCH (08:29)
[2017-02-07] MEDS: BACLOFEN 20 MG TABLET PO SCH ×3 (08:29→21:19)
[2017-02-07] MEDS: FAMOTIDINE 20 MG TABLET PO SCH (08:30)
[2017-02-07] MEDS: GABAPENTIN 400 MG CAPSULE PO SCH (08:30)
[2017-02-07] MEDS: DICYCLOMINE HCL 20 MG TABLET PO SCH ×3 (08:30→21:19)
[2017-02-07] MEDS: FOLIC ACID 1 MG TABLET PO SCH (08:30)
[2017-02-07] MEDS: THIAMINE HCL 100 MG TABLET PO SCH (08:30)
[2017-02-07] MEDS: AMLODIPINE 5 MG TABLET PO SCH (08:30)
[2017-02-07] MEDS: CLONIDINE HCL 0.1 MG TABLET PO SCH ×3 (08:30→21:20)
[2017-02-07] MEDS ORDERED: BUPRENORPHINE HCL 2 MG TAB.SUBL SL SCH (09:00)
[2017-02-07] MEDS ORDERED: LORAZEPAM 1 MG TABLET PO SCH (09:00)
--- NOTE | 2017-02-07 11:49 | NUR ---
PRN TORADOL Pt c/o 01/27 throat and upper chest pain pt describes it as a muscle ache, heart rate and rhythm wnl, heart rate is 86, pt states he feels congested and the pain is related to bronchitis. Will reassess.
--- NOTE | 2017-02-07 12:19 | NUR ---
REASSESSMENT Pt states he is more comfortable now, pain is 6/10, pt encouraged to rest, non pharmacological methods encouraged.
[2017-02-07 12:28] VITALS: BP 130/68
--- NOTE | 2017-02-07 13:13 | NUR ---
COMMUNICATION Per Dr. Jules orders, pt to receive Subutex 2mg once for COWS 8. Pt reports increased anxiety, generalized aches, chills and cramps.
[2017-02-07] MEDS ORDERED: BUPRENORPHINE HCL 2 MG TAB.SUBL SL ONE (13:15)
[2017-02-07] MEDS: LEVOFLOXACIN 750 MG TABLET PO SCH (14:12)
[2017-02-07] MEDS: LORAZEPAM 1 MG TABLET PO SCH ×2 (14:13→21:20)
[2017-02-07] MEDS: GABAPENTIN 300 MG CAPSULE PO SCH ×2 (14:13→21:20)
[2017-02-07] MEDS: BUPRENORPHINE HCL 2 MG TAB.SUBL SL SCH ×2 (15:51→21:20)
[2017-02-07 17:07] VITALS: BP 123/67
--- NOTE | 2017-02-07 19:26 | NUR ---
END OF SHIFT Endorsed to night nurse. 21 year old male patient admitted on 02/03/17 for ETOH, benzo, opiate, and methamphetamine dependence. Pt is on a 5 day Ativan and 5 day Subutex taper and is tolerating well. Reports medical hx of ADHD, HTN, insomnia, anxiety and depression, reports a seizure hx r/t withdrawals in Jun 2016. Pt remains seizure free and safe throughout hospitalization. Pt is receiving Levaquin PO for pneumonia. Pt has a #20g IV to right hand with IVF D5 1/2 NS. IV site is clear, no redness or infiltration noted. In addition to scheduled doses, One time Subutex 2mg administered per MD order. Pt is allergic to PCN and follows a vegetarian diet. Most recent COWS are 6 and CIWA 6. Pt reports discomfort but refuses ordered PRN meds and states "I only want Valium, and phenobarbital." Pt education provided on detox process. Pt remains safe. All needs met at this time, night nurse will continue to monitor.
[2017-02-07 20:00] VITALS: BP 142/101
--- NOTE | 2017-02-07 20:00 | NUR ---
Start of Shift Pt is a 21 year old male admitted for ETOH/Benzo/Opiate dependence, placed on 5 day Ativan and 5 day Subutex taper. Pt reported using ETOH 250 - 1500ml/daily, Xanax 5mg/daily, Heroin IV 2 g/daily, meth IV 2 g/daily, crack cocaine via smoke 1 gram and Marijuana 1/2 ounce daily. PMH: ADHD, HTN, Insomnia, anxiety, depression and seizures d/t withdrawal, last episode 06/2016. Allergies to PCN, fall/seizure precautions, vegetarian diet and full code. Upon assessment, pt appears agitated and states, "I want different meds", reports feeling anxious, reports chills and body discomfort throughout body, nasal stuffiness noted, respirations even/unlabored, denies SOB/chest pain. Pt is receiving Levaquin PO for pneumonia. Pt has a 20g IV to right hand with IVF D5 1/2 NS. IV site is clear, no redness or infiltration noted. Education provided on detox process, medications due. Safety measures in place, call light within reach, side rails up x2, bed locked and in low position. Will continue to monitor.
[2017-02-07] MEDS: QUETIAPINE FUMARATE 25 MG TABLET PO SCH (21:19)
[2017-02-07] MEDS: MIRTAZAPINE 15 MG TABLET PO SCH (21:19)
[2017-02-08] VITALS: BP 132/75
--- NOTE | 2017-02-08 | NUR ---
Vital Signs BP 132/75, pulse 87, resp 17, SpO2 98% room air, temp 98.1, no reports of pain. COWS/CIWA deferred d/t pt sleeping, to assess while pt is awake as ordered. Safety measures in place. Will continue to monitor.
[2017-02-08] MEDS: IV D5 1/2 NS 1000 ML 1,000 ML IV PRN (03:13)
--- NOTE | 2017-02-08 03:13 | NUR ---
IVF New bag of IVF D5 1/2 NS started, IV site is clear, no redness/infiltration noted. Safety measures in place. Will continue to monitor.
--- NOTE | 2017-02-08 04:00 | NUR ---
Pt refused to be woken up for 0400 Vital Signs COWS/CIWA deferred d/t pt sleeping, to assess while pt is awake as ordered. Safety measures in place. Will continue to monitor
--- NOTE | 2017-02-08 07:00 | NUR ---
End of Shift Pt is a 21 year old male admitted for ETOH/Benzo/Opiate dependence, placed on 5 day Ativan and 5 day Subutex taper. Pt reported using ETOH 250 - 1500ml/daily, Xanax 5mg/daily, Heroin IV 2 g/daily, meth IV 2 g/daily, crack cocaine via smoke 1 gram and Marijuana 1/2 ounce daily. PMH: ADHD, HTN, Insomnia, anxiety, depression and seizures d/t withdrawal, last episode 06/2016. Allergies to PCN, fall/seizure precautions, vegetarian diet and full code. During shift, pt presented with agitation and stated, "I want different meds", reported feeling anxious, reported chills and body discomfort throughout body, nasal stuffiness noted - scheduled taper medications administered, COWS 6 and CIWA 7. Pt is receiving Levaquin PO for pneumonia. Pt has a 20g IV to right hand with IVF D5 1/2 NS. IV site is clear, no redness or infiltration noted. Pt slept for 6 hours, intake of 1710 ml PO, voids x3 and stool x0. Safety measures in place, call light within reach, side rails up x2, bed locked and in low position. Endorsed to day shift nurse.
--- NOTE | 2017-02-08 07:45 | NUR ---
Start of Shift Flight Engineer Instructor received report on 21 year old male admitted on 02/03/17 for poly substance detoxification. Pt is a full code, vegetarian diet and has an allergy to PCN. Pt reports PMH of ADHD, HTN, insomnia, anxiety, depression and withdrawal related seizures. Pt has a 20 gauge peripheral catheter into the right hand, with D5 1/2NS infusing. IV site clear, dry with no redness, tenderness or swelling noted. No PRN given last evening. Pt currently on a Ativan and Subutex taper, tolerating well. Flight Engineer Instructor encounters pt in bed resting with eyes closed. Respiration even, unlabored and rise and chest of fall noted. Bed in low position, wheels locked, side rails up x2 and call light within reach. Will continue to monitor, support and encourage according to plan of care.
[2017-02-08 08:41] VITALS: BP 144/81
[2017-02-08] MEDS ORDERED: LORAZEPAM 1 MG TABLET PO SCH (09:00)
[2017-02-08] MEDS ORDERED: BUPRENORPHINE HCL 2 MG TAB.SUBL SL SCH ×2 (09:00)
[2017-02-08] MEDS: DICYCLOMINE HCL 20 MG TABLET PO SCH ×3 (09:37→20:58)
[2017-02-08] MEDS: AMLODIPINE 5 MG TABLET PO SCH (09:38)
[2017-02-08] MEDS: GABAPENTIN 300 MG CAPSULE PO SCH ×3 (09:38→20:58)
[2017-02-08] MEDS: BACLOFEN 20 MG TABLET PO SCH ×3 (09:38→20:58)
[2017-02-08] MEDS: CLONIDINE HCL 0.1 MG TABLET PO SCH ×3 (09:38→20:58)
[2017-02-08] MEDS: FOLIC ACID 1 MG TABLET PO SCH (09:38)
[2017-02-08] MEDS: FAMOTIDINE 20 MG TABLET PO SCH (09:39)
[2017-02-08] MEDS: MULTIVITAMINS,THERAPEUTIC TABLET PO SCH (09:39)
[2017-02-08] MEDS: THIAMINE HCL 100 MG TABLET PO SCH (09:39)
[2017-02-08 12:45] VITALS: BP 112/63
[2017-02-08] MEDS: LEVOFLOXACIN 750 MG TABLET PO SCH (15:47)
[2017-02-08 16:25] LABS: *AMPHETAMINE, URINE NEGATIVE (NEGATIVE); *BARBITURATE, URINE NEGATIVE (NEGATIVE); *CANNABINOID, URINE POSITIVE (NEGATIVE); *COCCAINE, URINE NEGATIVE (NEGATIVE); *OPIATE, URINE NEGATIVE (NEGATIVE); *PHENCYCLIDINE SCREEN,URINE NEGATIVE (NEGATIVE)
[2017-02-08 16:35] VITALS: BP 121/64
[2017-02-08] MEDS: HYDROXYZINE PAMOATE 25 MG CAPSULE PO PRN (17:13)
[2017-02-08] MEDS: IBUPROFEN 400 MG TABLET PO PRN (17:13)
--- NOTE | 2017-02-08 17:13 | NUR ---
PRN Vistaril and Motrin Pt approaches nurses station and states, " can I get an Ativan." Pt explained there was no more order for Ativan d/t pending discharge tomorrow. Beer Merchant suggested Vistaril for anxiety and Motrin for pt's throat pain of 6/10. Administered per MD order, pt tolerated well. Will continue to monitor, support and encourage according to plan of care.
[2017-02-08] MEDS ORDERED: LEVO750T21 PO (17:55)
[2017-02-08] MEDS ORDERED: DICY20TA28 PO (17:55)
[2017-02-08] MEDS ORDERED: HYDR-3895 PO (17:55)
[2017-02-08] MEDS ORDERED: GABA-534 PO (17:55)
[2017-02-08] MEDS ORDERED: QUET25TA PO (17:55)
[2017-02-08] MEDS ORDERED: MIRT15TA7 PO (17:55)
[2017-02-08] MEDS ORDERED: FAMO20TA8 PO (17:55)
[2017-02-08] MEDS ORDERED: CLON0.1T14 PO (17:55)
[2017-02-08] MEDS ORDERED: IBUP-1953 PO (17:55)
[2017-02-08] MEDS ORDERED: BACL20TA PO (17:55)
[2017-02-08] MEDS ORDERED: AMLO5TAB2 PO (17:55)
--- NOTE | 2017-02-08 18:13 | NUR ---
PRN re-assessment Pt still anxious, requesting Ativan and other medications, focused on medication. No complaints of pain at this time. Will continue to monitor, support and encourage according to plan of care.
--- NOTE | 2017-02-08 18:54 | NUR ---
IV d/c'd Dr Jules ordered to stop IVF d/t pt eating and drinking. IV d/c'd. Pt tolerated well.
--- NOTE | 2017-02-08 19:17 | NUR ---
End of Shift Airborne Electronics Analyst provided report on 21 year old male admitted on 02/03/17 for poly substance detoxification, with no further comments, questions or concerns voiced. Pt is a full code, vegetarian diet and has an allergy to PCN. Pt reports PMH of ADHD, HTN, insomnia, anxiety, depression and withdrawal related seizures. PRN Vistaril and Motrin given today. Pt has completed his tapers and is scheduled to discharge tomorrow. Pt slept till 1500. Pt is calm and cooperative, focused on medications. Bed in low position, wheels locked, side rails up x2 and call light within reach. Will continue to monitor, support and encourage according to plan of care.
[2017-02-08 20:00] VITALS: BP 146/78
--- NOTE | 2017-02-08 20:00 | NUR ---
Start of Shift Pt is a 21 year old male admitted for ETOH/Benzo/Opiate dependence, placed on 5 day Ativan and 5 day Subutex taper taper completed. Pt reported using ETOH 250 - 1500ml/daily, Xanax 5mg/daily, Heroin IV 2 g/daily, meth IV 2 g/daily, crack cocaine via smoke 1 gram and Marijuana 1/2 ounce daily. PMH: ADHD, HTN, Insomnia, anxiety, depression and seizures d/t withdrawal, last episode 06/2016. Allergies to PCN, fall/seizure precautions, vegetarian diet and full code. Upon assessment, pt reports feeling anxious, reports discomfort throughout body, respirations even/unlabored, denies SOB/chest pain. Pt is receiving Levaquin PO for pneumonia. Pt is scheduled for discharge tomorrow. Safety measures in place, call light within reach, side rails up x2, bed locked and in low position. Will continue to monitor.
[2017-02-08] MEDS: MIRTAZAPINE 15 MG TABLET PO SCH (20:58)
[2017-02-08] MEDS: QUETIAPINE FUMARATE 25 MG TABLET PO SCH (21:08)
[2017-02-08] MEDS: ONDANSETRON ODT 4 MG TAB.RAPDIS SL PRN (22:01)
--- NOTE | 2017-02-08 22:01 | NUR ---
PRN Administration Zofran 4mg ODT PRN administered for reports of nausea, no episodes of emesis. Safety measures in place. Will continue to monitor.
--- NOTE | 2017-02-08 23:01 | NUR ---
PRN Reassessment Pt reports relief of nausea. Zofran effective. Safety measures in place. Will continue to monitor.
[2017-02-09] VITALS: BP 129/58
--- NOTE | 2017-02-09 | NUR ---
Vital Signs BP 129/58, pulse 87, resp 16, SpO2 100% room air, temp 97.3, no reports of pain. COWS/CIWA deferred d/t pt sleeping, to assess while pt is awake as ordered. Safety measures in place. Will continue to monitor.
--- NOTE | 2017-02-09 04:00 | NUR ---
Pt refused to be woken up for 0400 Vital Signs COWS/CIWA deferred d/t pt sleeping to assess while pt is awake as ordered. Safety measures in place. Will continue to monitor.
--- NOTE | 2017-02-09 07:00 | NUR ---
End of Shift Pt is a 21 year old male admitted for ETOH/Benzo/Opiate dependence, placed on 5 day Ativan and 5 day Subutex taper taper completed. Pt reported using ETOH 250 - 1500ml/daily, Xanax 5mg/daily, Heroin IV 2 g/daily, meth IV 2 g/daily, crack cocaine via smoke 1 gram and Marijuana 1/2 ounce daily. PMH: ADHD, HTN, Insomnia, anxiety, depression and seizures d/t withdrawal, last episode 06/2016. Allergies to PCN, fall/seizure precautions, vegetarian diet and full code. During shift, pt reported feeling anxious, reported discomfort throughout body scheduled medications administered, COWS 2 and CIWA 3. Zofran 4mg ODT PRN administered, effective. Pt is scheduled discharged today. Pt slept for 4 hours, intake of 1210ml PO, voids x2 and stool x0. Safety measures in place, call light within reach, side rails up x2, bed locked and in low position. Endorsed to day shift nurse.
--- NOTE | 2017-02-09 07:30 | NUR ---
Start of Shift Medical Staff Manager received report on 21 year old male admitted on 02/03/17 for poly substance detoxification. Pt is a full code, vegetarian diet and has an allergy to PCN. Pt reports PMH of ADHD, HTN, insomnia, anxiety, depression and withdrawal related seizures. PRN Zofran given last evening. Pt has completed an Ativan taper and will discharge today. Pt is anxious and ready to discharge. A/O x4 and able to make needs known. Bed in low position, wheels locked, side rails up x2 and call light within reach. Will continue to monitor, support and encourage according to plan of care.
[2017-02-09 08:45] VITALS: BP 132/87
[2017-02-09] MEDS: DICYCLOMINE HCL 20 MG TABLET PO SCH (09:20)
[2017-02-09] MEDS: CLONIDINE HCL 0.1 MG TABLET PO SCH (09:21)
[2017-02-09] MEDS: BACLOFEN 20 MG TABLET PO SCH (09:21)
[2017-02-09] MEDS: GABAPENTIN 300 MG CAPSULE PO SCH (09:21)
[2017-02-09] MEDS: FOLIC ACID 1 MG TABLET PO SCH (09:21)
[2017-02-09 09:22] VITALS: BP 132/83
[2017-02-09] MEDS: FAMOTIDINE 20 MG TABLET PO SCH (09:22)
[2017-02-09] MEDS: THIAMINE HCL 100 MG TABLET PO SCH (09:22)
[2017-02-09] MEDS: MULTIVITAMINS,THERAPEUTIC TABLET PO SCH (09:22)
[2017-02-09] MEDS: HYDROXYZINE PAMOATE 25 MG CAPSULE PO PRN (09:22)
[2017-02-09] MEDS: AMLODIPINE 5 MG TABLET PO SCH (09:22)
--- NOTE | 2017-02-09 09:22 | NUR ---
PRN Vistaril Pt complain of anxiety, difficulty sitting still and hyperactive. Pt request Vistaril by name. Medical Lab Technician administered medication per MD order, pt tolerated well. Will continue to monitor, support and encourage according to plan of care.
[2017-02-09] MEDS: LEVOFLOXACIN 750 MG TABLET PO SCH (09:51)
--- NOTE | 2017-02-09 10:45 | NUR ---
Discharge Note Pt is discharged per ambulation to private car. Pt to discharge home and attend [facility] "mostly in [place]". Pt in stable condition with VS WNL. Pt is A/O x4 and makes needs known. Clear thought and speech. Anxious and hyperactive, difficulty sitting still. Pt denies HI/SI or A/VH. Pt provided discharge education including medication and follow up information. Medication education to include indication, timing and importance of maintained medication compliance. Pt provided with medication prescriptions. All discharge paperwork signed, belongings returned, home medication returned and education provided with no further comments, questions or concerns voiced. made aware of pts discharge.
== END 2017-02-09 10:45 | disposition other institution (70) | DRG 895 ==
LOC: SRC 02-03 00:45
PROVIDERS: ADMIT Internal Medicine; ATTEND Internal Medicine
PROC: HZ2ZZZZ Detoxification Services for Substance Abuse Treatment (ICD-10-PCS; principal; 2017-02-03)
PROC: HZ31ZZZ Individual Counseling for Substance Abuse Treatment, Behavioral (ICD-10-PCS; 2017-02-05)
PROC: 3E0F7GC Introduction of Other Therapeutic Substance into Respiratory Tract, Via Natural or Artificial Opening (ICD-10-PCS; 2017-02-06)
DX: F10.230 Alcohol dependence with withdrawal, uncomplicated (principal); J69.0 Pneumonitis due to inhalation of food and vomit; F33.1 Major depressive disorder, recurrent, moderate; F11.23 Opioid dependence with withdrawal; Y90.9 Presence of alcohol in blood, level not specified; F41.9 Anxiety disorder, unspecified; F90.9 Attention-deficit hyperactivity disorder, unspecified type; Z81.1 Family history of alcohol abuse and dependence; Z81.4 Family history of other substance abuse and dependence; Z81.8 Family history of other mental and behavioral disorders; G47.00 Insomnia, unspecified; F14.10 Cocaine abuse, uncomplicated; F17.210 Nicotine dependence, cigarettes, uncomplicated; F13.10 Sedative, hypnotic or anxiolytic abuse, uncomplicated; E87.6 Hypokalemia; E07.81 Sick-euthyroid syndrome
CPT/HCPCS: 36415; 71010; 80307; 80324; 80349; 80361; 83690; 83735; 84100; 84443; 85025; 86580; 86592; 86705; 86803; 87340; 87806; 93005; A4663; G0480; J1885; J2405; J2550; J3411; J3490; J7050; Q0162